=== PATIENT | female | born 1990 | race Caucasian/White ===

== ENCOUNTER → 2025-01-03 | Emergency (ER) | payer MEDICAID ==
[~2025-01-03] VITALS: Ht 154.9 cm; Wt 43.1 kg
[~2025-01-03] MED LIST: NITR-84 PO; NITROFURANTOIN/NITROFURAN MAC 100 MG CAPSULE PO ONE
[2025-01-03 18:46] VITALS: BP 125/85
[2025-01-03 19:20] LABS: *BILIRUBIN,URIN NEGATIVE (NEGATIVE); *BLOOD, URINE 2+ (NEGATIVE); *CLARITY,URINE CLEAR (CLEAR); *COLOR,URINE LIGHT YELLOW (YELLOW); *KETONES,URINE NEGATIVE (NEGATIVE); *PROTEIN,URINE TRACE (NEGATIVE); *UROBILINOGEN,URINE 0.2 E.U./dl (NORMAL); LEUKOCYTE ESTERASE ,URINE 2+ (NEGATIVE); NITRITE, URINE NEGATIVE (NEGATIVE); UGLUCOSE NEGATIVE (NEGATIVE)
[2025-01-03 19:21] LABS: *URINE HCG, QUAL NEGATIVE (NEGATIVE)
[2025-01-03 19:36] LABS: SQUAMOUS EPITHELIAL CELL,UR FEW /HPF (NONE SEEN)
[2025-01-03] MEDS: NITROFURANTOIN/NITROFURAN MAC 100 MG CAPSULE PO ONE (19:52)
[2025-01-03 20:25] VITALS: BP 125/85; TEMP 98; O2SAT 98
== END | disposition home or self-care (01) ==
LOC: ER 18:40
DX: N30.90 Cystitis, unspecified without hematuria (principal)
CPT/HCPCS: 84703; 87077; 87086

== ENCOUNTER 2025-03-05 18:19 | Emergency (ER) | payer MEDICAID ==
[~2025-03-05] VITALS: Ht 162.6 cm; Wt 41.7 kg
[~2025-03-05 18:19] MED LIST changes: -NITROFURANTOIN/NITROFURAN MAC 100 MG CAPSULE PO ONE
[2025-03-05 19:00] VITALS: BP 139/69
[2025-03-05 19:24] LABS: *BILIRUBIN,URIN NEGATIVE (NEGATIVE); *BLOOD, URINE NEGATIVE (NEGATIVE); *CLARITY,URINE CLEAR (CLEAR); *COLOR,URINE YELLOW (YELLOW); *KETONES,URINE NEGATIVE (NEGATIVE); *PROTEIN,URINE NEGATIVE (NEGATIVE); *UROBILINOGEN,URINE 0.2 E.U./dl (NORMAL); LEUKOCYTE ESTERASE ,URINE 1+ (NEGATIVE); NITRITE, URINE POSITIVE (NEGATIVE); UGLUCOSE NEGATIVE (NEGATIVE)
[2025-03-05] MEDS ORDERED: FOSFOMYCIN TROMETHAMINE 3 GM PACKET ONE (19:34)
[2025-03-05] MEDS: FOSFOMYCIN TROMETHAMINE 3 GM PACKET PO ONE (19:37)
[2025-03-05 19:43] VITALS: BP 135/65; O2SAT 99
== END 2025-03-05 19:44 | disposition home or self-care (01) ==
LOC: ER 18:22
DX: N39.0 Urinary tract infection, site not specified (principal)
CPT/HCPCS: 87086; A4606; A4663